=== PATIENT | female | born 1990 | race Caucasian/White ===

== ENCOUNTER 2017-10-22 21:51 | Emergency (ER) | payer OTHER ==
[~2017-10-22] VITALS: Ht 165.1 cm; Wt 103.4 kg
[2017-10-22] MEDS ORDERED: POLTRIOPSO RIGHTEYE (23:24)
[2017-10-23] MEDS ORDERED: CEPH500 PO (00:59)
[2017-10-23] MEDS ORDERED: ERYT1OIN RIGHTEYE (00:59)
[2017-10-23] MEDS ORDERED: Bactrim Ds Tab1 EACH PO (00:59)
== END 2017-10-23 01:15 | disposition home or self-care (01) ==
LOC: ER 21:51
DX: L03.213 Periorbital cellulitis (principal); H10.9 Unspecified conjunctivitis; Z79.899 Other long term (current) drug therapy
CPT/HCPCS: 99282